=== PATIENT | male | born 1980 | race African-American/Black ===

== ENCOUNTER 2023-01-28 08:47 | Outpatient (CLI) | payer BC | END 2023-01-28 08:48 | disposition home or self-care (01) | LOC: NM 08:47 | PROVIDERS: ATTEND Physician Assistant Medical | DX: K21.9 Gastro-esophageal reflux disease without esophagitis (principal); R19.7 Diarrhea, unspecified; K30 Functional dyspepsia | CPT/HCPCS: 78264; A9541 ==

== ENCOUNTER 2023-04-29 12:11 | Outpatient (CLI) | payer BC | END 2023-04-29 12:12 | disposition home or self-care (01) | LOC: SCSMRI 12:11 | PROVIDERS: ATTEND Internal Medicine Gastroenterology | DX: K62.5 Hemorrhage of anus and rectum (principal); K31.84 Gastroparesis; E83.19 Other disorders of iron metabolism; R19.7 Diarrhea, unspecified; R74.8 Abnormal levels of other serum enzymes | CPT/HCPCS: 74183 ==